=== PATIENT | female | born 2000 | race Caucasian/White ===

== ENCOUNTER 2021-11-30 18:08 | Emergency (ER) | payer MEDICAID ==
[~2021-11-30] VITALS: Ht 157.4 cm; Wt 54.4 kg
== END 2021-11-30 22:07 | disposition home or self-care (01) ==
LOC: ED 18:08
DX: S62.91XA Unspecified fracture of right hand, initial encounter for closed fracture (principal); W22.8XXA Striking against or struck by other objects, initial encounter; Y93.89 Activity, other specified; Y92.89 Other specified places as the place of occurrence of the external cause; Y99.8 Other external cause status

== ENCOUNTER → 2022-10-05 | Outpatient (CLI) | payer OTHER, MEDICAID ==
[2022-10-06 16:08] LABS: ANTICARDIOLIPIN AB, IGG, QN <9 GPL U/mL (0-14); ANTICARDIOLIPIN AB, IGM, QN 19 MPL U/mL (0-12)
[2022-10-07 14:08] LABS: LUPUS DRVVT 34.8 sec (0.0-47.0); PTT-LA 43.8 sec (0.0-43.5)
[2022-10-07 15:07] LABS: BETA-2 GLYCOPROTEIN I AB,IGA <9 (0-25); BETA-2 GLYCOPROTEIN I AB,IGG 10 (0-20); BETA-2 GLYCOPROTEIN I AB,IGM 12 (0-32)
[2022-10-08 13:06] LABS: PTT-LA MIX 40.4 sec (0.0-40.5)
[2022-10-08 16:07] LABS: HEXAGONAL PHASE PHOSPHOLIPID 9 sec (0-11)
[2022-10-08 18:07] LABS: LUPUS REFLEX INTERPRETATION Comment: (.)
== END | disposition home or self-care (01) ==
LOC: LAB 11:40
PROVIDERS: ATTEND Obstetrics & Gynecology
DX: D68.62 Lupus anticoagulant syndrome (principal)

== ENCOUNTER 2025-08-20 08:52 | Emergency (ER) | payer OTHER, MEDICAID ==
[~2025-08-20] VITALS: Ht 160 cm; Wt 46.3 kg
[2025-08-20] MEDS ORDERED: Metoclopramide Hydrochloride 10 MG/2 ML VIAL IV ONE (09:05)
[2025-08-20] MEDS ORDERED: SODIUM CHLORIDE 0.9% 1,000 ML IV ONE (09:05)
[2025-08-20] MEDS ORDERED: diphenhydrAMINE hydrochloride 50 MG/ML VIAL IV ONE (09:05)
[2025-08-20 09:17] LABS: BASO # 0.0 10*3/uL (0.0-0.1); BASO % 0.3 % (0.0-1.0); EOS # 0.0 10*3/uL (0.0-0.4); EOS % 0.0 % (1.0-4.0); MEAN CELL VOLUME 91.5 fl (81.0-99.0); MEAN CORPUSCULAR HGB 31.5 pg (27.0-31.0); MEAN PLATELET VOLUME 10.6 fl (9.6-12.3); MONO # 0.4 10*3/uL (0.1-1.0); MONO % 5.0 % (3.0-9.0); NEUT # 6.5 10*3/uL (2.3-7.9); NEUT % 86.7 % (47.0-73.0); NUCLEATED RED BLOOD CELL 0.0 % (0.0-0.0); NUCLEATED RED BLOOD CELL 0.0 10*3/uL (0.0-0.0); PLATELET COUNT AUTOMATED 192 10*3/uL (130-400); RED CELL DISTRI WIDTH 11.8 % (0-14.5)
[2025-08-20 09:23] LABS: BILIRUBIN Negative (Negative); BLOOD 1+ (Negative); CLARITY Cloudy (Clear); COLOR Yellow (Yellow); KETONE 1+ (Negative); LEUKO ESTERASE Negative (Negative); NITRITE Negative (Negative); PH 5.5 (4.5-8.0); SPECIFIC GRAVITY >= 1.030 (1.001-1.030); UROBILINOGEN 1.0 E.U./dl (0.0-1.0)
[2025-08-20 09:32] LABS: BACTERIA 2+; MUCOUS 3+; WBC 0-2 wbc/hpf (0-5)
[2025-08-20 09:54] LABS: BUN 12 mg/dl (9-23)
[2025-08-20] MEDS ORDERED: Ciprofloxacin Hydrochloride 500 MG TAB PO ONE (10:00)
[2025-08-20] MEDS ORDERED: Ondansetron4 MG PO (10:05)
[2025-08-20] MEDS ORDERED: CIPRO500 MG PO (10:05)
== END 2025-08-20 10:17 | disposition home or self-care (01) ==
LOC: ED 08:52
PROVIDERS: Internal Medicine
DX: N39.0 Urinary tract infection, site not specified (principal)